=== PATIENT | male | born 2005 | race Two or more races ===

== ENCOUNTER 2024-08-25 06:03 | Emergency (ER) | payer MEDICAID, SELFPAY ==
[2024-08-25 06:15] VITALS: BP 159/100; PULSE 98; RESP 17; TEMP 37.3; O2SAT 97
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
[2024-08-25] MEDS: LIDOCAINE HCL 1% 20 ML VIAL INFL (07:21)
[2024-08-25 08:17] VITALS: BP 142/85; PULSE 100; RESP 18; TEMP 37.2; O2SAT 97
== END 2024-08-25 08:18 | disposition home or self-care (01) ==
PROVIDERS: Emergency Provider Urology; PCP Obstetrics & Gynecology
DX: S01.81XA Laceration without foreign body of other part of head, initial encounter (principal); S01.112A Laceration without foreign body of left eyelid and periocular area, initial encounter; S09.90XA Unspecified injury of head, initial encounter; Y04.0XXA Assault by unarmed brawl or fight, initial encounter
CPT/HCPCS: 12014; 70450; 99284; J3490

== ENCOUNTER 2024-09-01 14:15 | Emergency (ER) | payer MEDICAID, SELFPAY ==
[2024-09-01 14:21] VITALS: BP 128/85; PULSE 89; RESP 18; TEMP 36.6; O2SAT 99
--- NOTE | 2024-09-01 14:30 | PD.EDPED ---
ED General RME/HPI General Chief complaint: Eye Problems Stated complaint: STITCH REMOVAL ON L) EYELID Time Seen by Provider: 09/01/24 14:21 Arrival date/time: 09/01/24 14:15 19-year-old male presents emergency department today with mother requesting to have sutures removed Limitations: no limitations Related Data Home Medications ?Medication ?Instructions ?Recorded ?Confirmed fluoxetine 20 mg tablet 20 mg PO QDAY 05/17/20 10/18/20 aripiprazole 10 mg tablet 10 mg PO QPM 10/18/20 10/18/20 aripiprazole 5 mg tablet 5 mg PO HS 10/18/20 11/01/20 cholecalciferol (vitamin D3) 50 50 mcg PO QDAY 10/18/20 10/18/20 mcg (2,000 unit) tablet (Vitamin D3) diphenhydramine HCl 50 mg capsule 50 mg PO DAILY PRN Anxiety 10/18/20 10/18/20 (Banophen) guanfacine 2 mg tablet,extended 2 mg PO QAM 10/18/20 11/01/20 release 24 hr lactulose 10 gram/15 mL oral 15 ml PO QDAY 10/18/20 10/18/20 solution (Constulose) fluoxetine 20 mg capsule 20 mg PO QDAY 11/01/20 11/01/20 risperidone 1 mg tablet 1 mg PO BID 11/01/20 11/01/20 Allergies Allergy/AdvReac Type Severity Reaction Status Date / Time No Known Allergies Allergy Verified 09/01/24 14:18 Pediatric Review of Systems Systems Reviewed Systems Reviewed: All systems reviewed, normal except as documented Review of Systems Constitutional: Reports as per HPI; Denies fever Eyes: Reports as per HPI ENT: Reports as per HPI Cardiovascular: Reports as per HPI Respiratory: Reports as per HPI; Denies cough, dyspnea, wheezing or sputum production Gastrointestinal: Reports as per HPI; Denies abdominal pain, nausea, vomiting or diarrhea Integumentary: Reports as per HPI and other (Sutures in place to the face) Past Medical History Past Medical History CARDIAC: Positive Hypercholesterolemia; Negative Congestive Heart Failure RESPIRATORY: Negative Chronic Obstructive Pulmonary Disease (COPD) GENITOURINARY: Negative Renal Disease ENDOCRINE: Negative Diabetes Mellitus Type 1 or Diabetes Mellitus Type 2 PSYCHO/SOCIAL: Positive Attention Deficit Hyperactivity Disorder OTHER HISTORY: Positive Autism Social History SMOKING STATUS: Never smoker SUBSTANCE USE: does not use Ped Exam General Limitations: no limitations General appearance: well-appearing, well-hydrated, active and well-nourished Head Head exam: normocephalic, atruamatic and normal inspection Eye Eye exam: Present normal appearance, PERRL and EOMI; Absent conjunctival injection ENT ENT exam: normal exam, normal oropharynx and mucous membranes moist Neck Neck exam: Present normal inspection, full ROM and trachea midline Chest Chest inspection: Present normal inspection and symmetric chest wall rise Respiratory Respiratory exam: Present normal lung sounds bilaterally Cardiovascular Cardiovascular exam: Present regular rate, normal rhythm and normal heart sounds Abdominal Exam Abdominal exam: Present soft; Absent distention, tenderness, guarding, rebound or rigidity Extremities Exam Extremities exam: Present normal inspection, full ROM and normal capillary refill Back Exam Back exam: Present normal inspection and full ROM Neurological Exam Neurological exam: Present alert, oriented X3, CN II-XII intact, normal gait and reflexes normal; Absent motor sensory deficit Skin Skin exam: Present warm, dry and other (Sutures in place facial) Course Quality Measures none Vital Signs Vital signs: Vital Signs Temperature 98 F 09/01/24 14:21 Pulse Rate 89 09/01/24 14:21 Respiratory Rate 18 09/01/24 14:21 Blood Pressure 128/85 H 09/01/24 14:21 Pulse Oximetry (%) 99 09/01/24 14:21 Oxygen Delivery Method Room Air 09/01/24 14:21 O2 saturation 9 9% room air within the limits Medical Decision Making MDM Narrative MDM Narrative: 19-year-old male presents emergency department today with mother requesting to have sutures removed On exam patient has sutures in place sutures are removed in their entirety Patient discharged home in no distress to follow-up with primary care doctor in the next 24 to 48 hours and for any worsening symptoms to return to the ER immediately Differential Diagnosis Differential Diagnosis: Sutures in place, laceration, abrasion Medical Records Medical records reviewed: Yes I reviewed the patient's medical records. MDM (ped) Patient data External records reviewed:: [facility] previous records Clinical information provided by:: patient Social determinants that could affect healthcare access:: none Patient has the following chronic illnesses:: See history How is presenting disease/condition affected by chronic disease/condition?: no chronic disease Evaluation data The following diagnostics were reviewed and interpreted by me:: other (specify) (N/A) Lab and/or radiology exams considered but not ordered:: N/A Interpretation Summary: N/A Medications Medications considered but not ordered:: no meds Medication administrations:: no meds Consultations Consultation(s) initiated? (list below): No Diagnosis Most likely diagnosis given after review of the tests above:: Suture removal Admission Indicated Admission indicated?: not indicated Explain why admission is indicated or not indicated:: no Criteria Admission Request Was there a request for admission?: No Disposition Plan Disposition Plan: Discharge Discharge Attestation Discharge Attestation: The patient and all family members were given an opportunity to ask questions and understood the discharge instructions. Discharge instructions specifically effects, indications for sooner follow up or return to the emergency department, and the expected course of current diagnosis. Patient condition: Stable Discharge Plan Plan Patient Disposition: HOME (Self Care) Discharge Disposition comment: stable Prescriptions/Referrals Prescriptions/Med Rec: No Action fluoxetine 20 mg Tablet 20 mg PO QDAY diphenhydramine HCl [Banophen] 50 mg Capsule 50 mg PO DAILY PRN (Reason: Anxiety) Patient Comments: prn insomnia Rx Instructions: PRN as needed for insomnia guanfacine 2 mg tablet extended release 24 hr 2 mg PO QAM Patient Comments: take 1 tablet by mouth every morning aripiprazole 10 mg Tablet 10 mg PO QPM aripiprazole 5 mg tablet 5 mg PO HS Patient Comments: take 1 tablet by mouth at bedtime lactulose [Constulose] 10 gram/15 mL solution 15 ml PO QDAY Patient Comments: take 15 milliliters by mouth once daily cholecalciferol (vitamin D3) [Vitamin D3] 50 mcg (2,000 unit) Tablet 50 mcg PO QDAY fluoxetine 20 mg capsule 20 mg PO QDAY Patient Comments: take 1 capsule by mouth every morning risperidone 1 mg tablet 1 mg PO BID Patient Comments: take 1 tablet by mouth twice a day Problem List Clinical Impression: Encounter for removal of sutures Patient/Caregiver Discharge Instructions Education Materials: Suture Care Additional Instructions: Please follow up with your primary care doctor in the next 24-48hrs for any worsening symptoms return here immediately Print Language: Swazi Stand Alone Forms: [employer] Award Info., Patient Portal Info Letter PA/CLIENT SERVICE ADMINISTRATOR Supervising Physician PA/CLIENT SERVICE ADMINISTRATOR Supervising Physician: dr [email or web address]
== END 2024-09-01 14:25 | disposition home or self-care (01) ==
PROVIDERS: Emergency Provider Family Medicine
DX: S01.81XD Laceration without foreign body of other part of head, subsequent encounter (principal); X58.XXXD Exposure to other specified factors, subsequent encounter
CPT/HCPCS: 99282

== ENCOUNTER 2024-09-25 15:54 | Emergency (ER) | payer MEDICAID, SELFPAY ==
[2024-09-25 15:56] VITALS: BP 158/95; PULSE 100; RESP 18; TEMP 36.9; O2SAT 96
--- NOTE | 2024-09-25 16:32 | EKG_ITS ---
[facility] (Formerly [facility]) Test Date: 2024-09-25 Pat Name: MEGAN BENAVIDES Department: Room: - Gender: Male [employer]: : 2005 Requested By: Sole Wolf Order Number: [id number] Reading MD: Sole Wolf Measurements Intervals [place] Rate: 89 P: 31 MI: 150 QRS: 62 QRSD: 100 T: 19 QT: 334 QTc: 407 Interpretive Statements SINUS RHYTHM No previous ECG available for comparison /store/S0/[id number]/[id number].pdf
--- NOTE | 2024-09-25 16:33 | PD.EDOVER ---
ED Overdose RME/HPI General Chief Complaint: Overdose Stated Complaint: OVERDOSE Time Seen by Provider: 09/25/24 16:31 Arrival date/time: 09/25/24 15:54 RME / HPI RME / HPI Narrative: 19-year-old male patient with significant history of autism, schizophrenia, was brought in by family/EMS for evaluation regarding drug overdose. Apparently patient got a hold of his Risperdal, 1 mg to 3 tablets, and guanfacine, 2 mg 3 tablets, out of nowhere, it happened about 1 hour prior to ER visit. Patient was noted to be more aggressive for the last 3 days, and tried to cut himself. On my evaluation patient denies any homicidal or suicidal ideation. Patient is minimally verbal. No vomiting noted no abdominal pain noted Related Data Home Medications ?Medication ?Instructions ?Recorded ?Confirmed fluoxetine 20 mg tablet 20 mg PO QDAY 05/17/20 10/18/20 aripiprazole 10 mg tablet 10 mg PO QPM 10/18/20 10/18/20 aripiprazole 5 mg tablet 5 mg PO HS 10/18/20 11/01/20 cholecalciferol (vitamin D3) 50 50 mcg PO QDAY 10/18/20 10/18/20 mcg (2,000 unit) tablet (Vitamin D3) diphenhydramine HCl 50 mg capsule 50 mg PO DAILY PRN Anxiety 10/18/20 10/18/20 (Banophen) guanfacine 2 mg tablet,extended 2 mg PO QAM 10/18/20 11/01/20 release 24 hr lactulose 10 gram/15 mL oral 15 ml PO QDAY 10/18/20 10/18/20 solution (Constulose) fluoxetine 20 mg capsule 20 mg PO QDAY 11/01/20 11/01/20 risperidone 1 mg tablet 1 mg PO BID 11/01/20 11/01/20 Allergies Allergy/AdvReac Type Severity Reaction Status Date / Time No Known Allergies Allergy Verified 09/01/24 14:18 Review of Systems Review of Systems Narrative Review of Systems: Review of system reviewed and within normal limits except mentioned in HPI ED Exam Narrative Physical exam: VITAL SIGNS: Reviewed. GENERAL APPEARANCE: Alert and oriented, follows simple commands, no acute distress, HEAD AND FACE: Non-traumatic. ENT: PERRL, pink conjunctivitis, eyelid no trauma, Mucous membrane moist. NECK: Supple, nontender, no nuchal rigidity. CHEST: No tenderness, no crepitus, no paradoxical movement, no retractions. LUNGS: Clear, well ventilated, symmetric, no rales, no wheezing, no ronchi, no stridor, good breath sounds bilaterally. HEART: Regular rate, regular rhythm, no murmur, no gallops. ABDOMEN: Soft, positive bowel sounds, nondistended, no guarding, nontender, no rebound, no masses, RECTAL: Deferred. GENITAL: Deferred. NEUROLOGICAL: Gross motor function intact sensory function intact, Appropriate for age. MUSCULOSKELETAL: low back nontender, full range of motion. EXTREMITIES: Nontender, full range of motion. SKIN: Color pink, dry, no rash, no lacerations, no abrasions, no contusions. LYMPHATICS: Deferred. Course Quality Measures none Orders Category Date Time Status 1799 Psychiatric Hold NOW Care 09/25/24 18:15 Ordered EKG (ED ONLY) *Do not use* NOW Care 09/25/24 16:32 Completed EKG (ED Only) Stat Exams 09/25/24 16:32 Draft Acetaminophen Stat Lab 09/25/24 16:46 Completed Alcohol, Blood Medical Stat Lab 09/25/24 16:46 Completed CBC Stat Lab 09/25/24 16:46 Completed CMP [Comprehensive Metabolic Panel] Stat Lab 09/25/24 16:46 Completed Salicylate Stat Lab 09/25/24 16:46 Completed DiphenhydrAMINE INJ [Benadryl Inj] Med 09/25/24 18:10 Discontinued 50 mg IM X1 ONE Haloperidol Lactate [Haldol Inj] Med 09/25/24 18:10 Discontinued 5 mg IM X1 ONE LORazepam [Ativan Inj] Med 09/25/24 18:10 Discontinued 2 mg IM X1 ONE Vital Signs Vital signs: Vital Signs Temperature 98.4 F 09/25/24 15:56 Pulse Rate 100 09/25/24 15:56 Respiratory Rate 18 09/25/24 15:56 Blood Pressure 158/95 H 09/25/24 15:56 Pulse Oximetry (%) 96 09/25/24 15:56 Oxygen Delivery Method Room Air 09/25/24 15:56 Overdose MDM Narrative MDM Narrative:: 19-year-old male patient with significant history of autism, schizophrenia, was brought in by family/EMS for evaluation regarding drug overdose. Apparently patient got a hold of his Risperdal, 1 mg to 3 tablets, and guanfacine, 2 mg 3 tablets, out of nowhere, it happened about 1 hour prior to ER visit. Patient was noted to be more aggressive for the last 3 days, and tried to cut himself. On my evaluation patient denies any homicidal or suicidal ideation. Patient is minimally verbal. No vomiting noted no abdominal pain noted Patient ran away from the emergency room, I was able to see him outside and convinced him to come inside again however the patient refused to come inside. We called [place] [employer] and reported the case. Patient data External records reviewed:: None Clinical information provided by:: patient Social determinants that could affect healthcare access:: none Patient has the following chronic illnesses:: Autism, history of schizophrenia How is presenting disease/condition affected by chronic disease/condition?: exacerbated by Evaluation data The following diagnostics were reviewed and interpreted by me:: lab results Lab and/or radiology exams considered but not ordered:: None Interpretation Summary: Laboratory workup came back unremarkable. No leukocytosis alcohol level is less than 3 acetaminophen level less than 2 salicylate less than 3 Medications / Prescriptions Medications or Prescriptions considered but not ordered:: None Medication administrations:: Medication Administration History Discontinued Medications Diphenhydramine HCl (Diphenhydramine Inj 50 Mg/Ml Vial) 50 mg IM X1 ONE Stop: 09/25/24 18:11 Haloperidol Lactate (Haloperidol Lact Inj 5 Mg/Ml Vial) 5 mg IM X1 ONE Stop: 09/25/24 18:11 Lorazepam (Lorazepam 2 Mg/Ml Vial) 2 mg IM X1 ONE Stop: 09/25/24 18:11 I ordered for Benadryl Haldol and lorazepam however patient did not receive any medications since patient left Consultations Consultation(s) initiated? (list below): No Diagnosis Overdose Differential Diagnosis: drug overdose and accidental drug ingestion Most likely diagnosis given after review of the tests above:: Behavioral problem, autism, schizophrenia Admission Indicated Admission indicated?: not indicated ([facility]) Admission Request Was there a request for admission?: No Disposition Plan Disposition Plan: other (specify) ([facility]) Discharge Plan Plan Patient Disposition: [facility]op[facility] Prescriptions/Referrals Prescriptions/Med Rec: No Action fluoxetine 20 mg Tablet 20 mg PO QDAY diphenhydramine HCl [Banophen] 50 mg Capsule 50 mg PO DAILY PRN (Reason: Anxiety) Patient Comments: prn insomnia Rx Instructions: PRN as needed for insomnia guanfacine 2 mg tablet extended release 24 hr 2 mg PO QAM Patient Comments: take 1 tablet by mouth every morning aripiprazole 10 mg Tablet 10 mg PO QPM aripiprazole 5 mg tablet 5 mg PO HS Patient Comments: take 1 tablet by mouth at bedtime lactulose [Constulose] 10 gram/15 mL solution 15 ml PO QDAY Patient Comments: take 15 milliliters by mouth once daily cholecalciferol (vitamin D3) [Vitamin D3] 50 mcg (2,000 unit) Tablet 50 mcg PO QDAY fluoxetine 20 mg capsule 20 mg PO QDAY Patient Comments: take 1 capsule by mouth every morning risperidone 1 mg tablet 1 mg PO BID Patient Comments: take 1 tablet by mouth twice a day Referrals: No Primary/Family,Physician [Primary Care Provider] - In 1 week Problem List Clinical Impression: Drug overdose Patient/Caregiver Discharge Instructions Print Language: Thai
[2024-09-25 16:41] VITALS: PULSE 130; RESP 20; O2SAT 100; BMI 38.4
[2024-09-25 16:56] LABS: Basophils # (Auto) 0.0 Thou/mm3 (0.0-0.2); Basophils % (Auto) 1 % (0-2.5); Eosinophils # (Auto) 0.1 Thou/mm3 (0.0-0.5); Eosinophils % (Auto) 1 % (0-10); Hematocrit 42.7 % (41.0-53.0); Hemoglobin 14.9 g/dL (13.5-16.0); Immature Granulocytes Auto 0.02 Thou/mm3 (0.00-0.00); Lymphocytes # (Auto) 2.3 Thou/mm3 (1.0-4.8); Lymphocytes % (Auto) 31 % (10-50); Mean Corpuscular HGB Conc 34.9 g/dl (31.0-37.0); Mean Corpuscular Hemoglobin 30.4 pg (25.0-35.0); Mean Corpuscular Volume 87 fL (80-100); Monocytes # (Auto) 0.5 Thou/mm3 (0.0-0.8); Monocytes % (Auto) 7 % (0-12); Neutrophils # (Auto) 4.5 Thou/mm3 (1.8-7.7); Neutrophils % (Auto) 61 % (37-80); Nucleated Red Blood Cell # 0.00 Thou/mm3 (0.00-0.00); Nucleated Red Blood Cell % 0 /100 WBC (0); Platelet Count 266 Thou/mm3 (140-440); RDW Standard Deviation 41.4 fL (35.1-43.9); Red Blood Count 4.90 Miln/mm3 (4.50-5.90); White Blood Count 7.5 Thou/mm3 (4.5-11.0)
[2024-09-25 17:21] LABS: Acetaminophen < 2.0 mcg/mL (10.0-20.0); Alanine Aminotransferase 14 U/L (10-49); Albumin, Serum 4.3 gm/dL (3.5-5.0); Albumin/Globulin Ratio 1.4 (1.2-2.2); Alcohol, Blood Medical < 3.0 mg/dL (0-10.0); Alkaline Phosphatase 70 U/L (46-116); Anion Gap 10 (7-16); Aspartate Amino Transferase 14 U/L (0-34); BUN/Creatinine Ratio 8 Ratio (12-20); Bilirubin,Total 0.4 mg/dL (0.3-1.2); Blood Urea Nitrogen 8 mg/dL (9-23); Calcium 9.1 mg/dL (8.3-10.6); Calcium (Corrected) 9.1 mg/dL (8.5-10.1); Carbon Dioxide 24.2 mMol/L (20.0-31.0); Chloride 108 mMol/L (98-107); Creatinine (Component) 1.0 mg/dL (0.6-1.3); Estimated Creatinine Clearance 154.0 mL/min (>60); Globulin 3.1 gm/dL (2.3-3.5); Glucose 100 mg/dL (74-106); Osmolality,Calculated 281 (275-295); Potassium 4.1 mMol/L (3.4-5.1); Salicylate < 3.0 mg/dL; Sodium 142 mMol/L (136-145); Total Protein 7.4 gm/dL (5.7-8.2); eGFR > 60 See Note
[2024-09-25 17:46] VITALS: PULSE 96; RESP 13; O2SAT 99
--- NOTE | 2024-09-25 18:04 | PC.CC ---
Patient is pending a mental health evaluation upon medical clearance. Per RN Raffaele he made contact with poison control who reported a minimum of 8 hours do to one of the medications the patient took being an extended release.
--- NOTE | 2024-09-25 18:18 | PC.NURSE ---
Pt removed all [facility] consultant equipment, got dressed and bolted past ER staff and security. [place] [employer] was notified. Pt is placed on a 1799 at this time. [place] police searching for patient at this time. Charge nurse and ER notified
--- NOTE | 2024-09-25 18:22 | PC.CC ---
MAYO, was made aware by bedside RN Odilon that patient eloped. Per RN Odilon, he notified [facility] dispatch and provided patient's demographics and a description of the patient.
== END 2024-09-25 18:50 | disposition left against medical advice (07) ==
LOC: SERX 17:53
PROVIDERS: Nurse Practitioner Family; Emergency Provider Emergency Medicine
DX: T50.901A Poisoning by unspecified drugs, medicaments and biological substances, accidental (unintentional), initial encounter (principal); Z53.29 Procedure and treatment not carried out because of patient's decision for other reasons
CPT/HCPCS: 36415; 80053; 80307; 80320; 80329; 81001; 85025; 93005; 96127; 99283; G0480